=== PATIENT | male | born 1940 | race Hispanic/Latino ===

== ENCOUNTER → 2024-09-16 | Outpatient (CLI) | payer OTHER ==
--- NOTE | 2024-09-16 11:36 | HMCIMG ---
CT calcium scoring Clinical Information: [facility] SCREENING Comparison: None CT Dose Index (CTDI): 13.30 mGy Dose Length Product (DLP): 186.18 total mGy-cm Findings: Calcium score 817.3. No identifiable calcification. The CT scan is not a complete chest CT. Covered portion is reviewed for incidental findings. No incidental findings seen. IMPRESSION: Calcium score as above. Calcium score reference stable: 0: No identifiable calcification 1- 10: Minimal identifiable calcification 11-100: Mild calcification 101- 400: Moderate calcification 401 and above: Significant calcification Automated exposure control and adequate statistical iterative reconstructions were utilized as dose reduction techniques.
== END | disposition home or self-care (01) ==
LOC: RAH 10:12
PROVIDERS: ATTEND Internal Medicine Cardiovascular Disease
DX: Z13.6 Encounter for screening for cardiovascular disorders (principal)
CPT/HCPCS: 75571

== ENCOUNTER → 2024-09-25 | Outpatient (CLI) | payer OTHER, MEDICARE ==
[2024-09-25] MEDS: REGADENOSON 0.4 MG/5 ML PF SYG IVP ONE (09:54)
--- NOTE | 2024-09-25 13:57 | HMCSR ---
APPROVED REPORT Height: 5 ft 6in Weight: 155 lbs TEST INDICATIONS CAD The imaging protocol used to acquire images was Rest Tc-99m/stress Tc-99m 1 day Consent: The procedure was explained and understood by the patient. Informerd consent was witnessed Corazon Crandall RN First, low dose rest was performed then high dose stress. RESTING DATA: The resting ekg shows: NSR, Inc RBBB Rest SPECT myocardial perfusion imaging was performed in supine position 68 minutes following the int ravenous injection of 11.1 mCi of Tc-99 Sestamibi. Time of rest injection: 08:48: Date: 09/25/2024 Time of rest imagin:56: Date: 09/25/2024 PHARMACOLOGIC STRESS: Pharmacologic stress test was performed by injecting regadenoson 0.4 mg IV push followed by the intra venous injection of mCi of Tc-99 Sestamibi. Time of stress injection: 10:28: Date: 09/25/2024 Time of stress imagin:27: Date: 09/25/2024 Heart Rate at time of stress injection: 69 bpm. Gated Stress SPECT was performed 59 minutes after stress injection. The images were gated to evaluate regional wall motion and calculate left ventricular ejection fracti on. STRESS DETAILS Reason for Termination: Infusion complete Stress Symptoms: Dyspnea Max HR Achieved: 91 bpm % of APMHR Achieved: 67 Max Blood Pressure: 151/70 mmHg Stress ECG: NSR, Inc RBBB Conclusion No ischemia No infarct LV ejection fraction 78% Normal LV wall motion Normal LV size at rest and stress No increased lung uptake
== END | disposition home or self-care (01) ==
LOC: SHCH 08:13
PROVIDERS: ATTEND Internal Medicine Cardiovascular Disease
DX: I25.10 Atherosclerotic heart disease of native coronary artery without angina pectoris (principal); R06.00 Dyspnea, unspecified
CPT/HCPCS: 78452; 93017; J2785; A9500 ×2